=== PATIENT | male | born 2000 | race Caucasian/White ===

== ENCOUNTER 2020-02-18 16:47 | Emergency (ER) | payer OTHER ==
[~2020-02-18] VITALS: Ht 180.3 cm; Wt 61.2 kg
[2020-02-18 16:49] VITALS: BP 124/66
[2020-02-18] MEDS ORDERED: BACTRIM DS TAB1 EACH PO (17:52)
== END 2020-02-18 17:43 | disposition home or self-care (01) ==
LOC: ER 16:47
DX: S50.861A Insect bite (nonvenomous) of right forearm, initial encounter (principal); W57.XXXA Bitten or stung by nonvenomous insect and other nonvenomous arthropods, initial encounter; Y93.89 Activity, other specified; Y92.89 Other specified places as the place of occurrence of the external cause; Y99.8 Other external cause status

== ENCOUNTER 2020-03-22 14:24 | Emergency (ER) | payer OTHER ==
[~2020-03-22] VITALS: Ht 182.9 cm; Wt 67.3 kg
[~2020-03-22 14:24] MED LIST: BACTRIM DS TAB1 EACH PO
[2020-03-22 14:31] VITALS: BP 106/66
[2020-03-22] MEDS ORDERED: BACTRIM DS TAB1 EACH PO (14:43)
== END 2020-03-22 17:02 | disposition home or self-care (01) ==
LOC: ER 14:24
DX: S40.862A Insect bite (nonvenomous) of left upper arm, initial encounter (principal); L02.412 Cutaneous abscess of left axilla; Z79.2 Long term (current) use of antibiotics; W57.XXXA Bitten or stung by nonvenomous insect and other nonvenomous arthropods, initial encounter; Y93.89 Activity, other specified; Y92.89 Other specified places as the place of occurrence of the external cause; Y99.8 Other external cause status

== ENCOUNTER 2020-05-29 12:10 | Emergency (ER) | payer OTHER ==
[~2020-05-29] VITALS: Ht 182.9 cm; Wt 74.8 kg
[2020-05-29 12:17] VITALS: BP 133/79
[2020-05-29] MEDS ORDERED: MEDROLDOSEPACK PO (12:40)
== END 2020-05-29 12:44 | disposition home or self-care (01) ==
LOC: ER 12:10
DX: L25.9 Unspecified contact dermatitis, unspecified cause (principal)

== ENCOUNTER 2020-08-03 17:37 | Emergency (ER) | payer OTHER ==
[~2020-08-03] VITALS: Ht 185.4 cm; Wt 68.0 kg
[~2020-08-03 17:37] MED LIST changes: +MEDROLDOSEPACK PO
[2020-08-03 19:17] VITALS: BP 125/87
--- NOTE | 2020-08-04 08:00 | EKG ---
[facility] [place] [address] ELECTROCARDIOGRAM REPORT Name: SHAHIDA HAWKINS Room #: DEP [facility]#: [id number] Admission: 08/03/20 Attend Phys: Discharge: 08/03/20 Date of : 89 Report #: [id number] THIS REPORT FOR: cc: JARRED - Charlene family physician/PCP JARRED - Charlene family physician/PCP Poncho Feldman MD [facility] ~ THIS REPORT FOR: //name// [facility] ED Test Date: 2020-08-03 Test Time: 17:51:53 Pat Name: SHAHIDA HAWKINS Department: Room: Gender: Logistics/Shipper: : 2000 Requested By: Axel Lemon Order Number: [id number] MD: Poncho Feldman Measurements Intervals Lindsay Rate: 74 P: 64 MO: 159 QRS: -1 QRSD: 83 T: 36 QT: 367 QTc: 408 Interpretive Statements Sinus rhythm Probable left atrial enlargement RSR' in V1 or V2, right VCD or RVH No previous ECG available for comparison Electronically Signed On 08-04-2020 8:00:39 CDT by Poncho Feldman [email or web address] <ELECTRONICALLY SIGNED> By: Poncho Feldman MD, FACC 08/04/20 0800 50 50 Poncho Feldman MD, [facility] /EPI
== END 2020-08-03 19:18 | disposition home or self-care (01) ==
LOC: ER 17:37
DX: M75.52 Bursitis of left shoulder (principal)

== ENCOUNTER 2020-08-18 09:07 | Emergency (ER) | payer OTHER ==
[~2020-08-18] VITALS: Ht 177.8 cm; Wt 74.8 kg
[2020-08-18] MEDS ORDERED: IBUPROFEN 600600 M1 PO (11:32)
[2020-08-18] MEDS ORDERED: SENNA-DOCUSATE1 EAC1 PO (11:32)
[2020-08-18] MEDS ORDERED: FLEXERIL PO (11:32)
[2020-08-18] MEDS ORDERED: NORCO 5-325 TA1 EAC2 PO (11:32)
[2020-08-18 11:50] VITALS: BP 108/69
== END 2020-08-18 12:04 | disposition home or self-care (01) ==
LOC: ER 09:07
DX: M25.512 Pain in left shoulder (principal); M25.552 Pain in left hip; M79.652 Pain in left thigh; F17.210 Nicotine dependence, cigarettes, uncomplicated; Z90.89 Acquired absence of other organs; V89.2XXA Person injured in unspecified motor-vehicle accident, traffic, initial encounter; Y93.89 Activity, other specified; Y92.488 Other paved roadways as the place of occurrence of the external cause; Y99.8 Other external cause status

== ENCOUNTER 2020-10-19 12:04 | Emergency (ER) | payer OTHER ==
[~2020-10-19] VITALS: Ht 182.9 cm; Wt 74.8 kg
[~2020-10-19 12:04] MED LIST changes: +FLEXERIL PO; +IBUPROFEN 600600 M1 PO; +NORCO 5-325 TA1 EAC2 PO; +SENNA-DOCUSATE1 EAC1 PO
[2020-10-19 14:16] VITALS: BP 136/80
[2020-10-19] MEDS ORDERED: IBUPROFEN 800800 M1 PO (14:18)
== END 2020-10-19 14:18 | disposition home or self-care (01) ==
LOC: ER 12:04
DX: S63.92XA Sprain of unspecified part of left wrist and hand, initial encounter (principal); F17.210 Nicotine dependence, cigarettes, uncomplicated; Z23 Encounter for immunization; Z90.89 Acquired absence of other organs; Z79.899 Other long term (current) drug therapy; X50.1XXA Overexertion from prolonged static or awkward postures, initial encounter; Y93.89 Activity, other specified; Y92.89 Other specified places as the place of occurrence of the external cause; Y99.8 Other external cause status

== ENCOUNTER 2021-02-01 11:18 | Emergency (ER) | payer OTHER ==
[~2021-02-01] VITALS: Ht 182.9 cm; Wt 74.8 kg
[~2021-02-01 11:18] MED LIST changes: +IBUPROFEN 800800 M1 PO
[2021-02-01 11:29] VITALS: BP 104/60
[2021-02-01] MEDS ORDERED: IBUPROFEN 800800 M1 PO (12:01)
== END 2021-02-01 12:10 | disposition home or self-care (01) ==
LOC: ER 11:18
DX: S63.696A Other sprain of right little finger, initial encounter (principal); F17.210 Nicotine dependence, cigarettes, uncomplicated; X50.1XXA Overexertion from prolonged static or awkward postures, initial encounter; Y93.89 Activity, other specified; Y92.89 Other specified places as the place of occurrence of the external cause; Y99.9 Unspecified external cause status

== ENCOUNTER 2021-04-15 15:09 | Emergency (ER) | payer OTHER ==
[~2021-04-15] VITALS: Ht 180.3 cm; Wt 81.7 kg
[2021-04-15] MEDS ORDERED: HYDROCORTISONE30 G4 TOP (16:53)
[2021-04-15] MEDS ORDERED: PREDNISONE 20 M20 MG PO (16:53)
[2021-04-15] MEDS ORDERED: HYDRALAZINE 2525 MG PO (16:53)
[2021-04-15 17:28] VITALS: BP 115/65
== END 2021-04-15 17:27 | disposition home or self-care (01) ==
LOC: ER 15:09
DX: L23.7 Allergic contact dermatitis due to plants, except food (principal); F17.210 Nicotine dependence, cigarettes, uncomplicated; Z90.89 Acquired absence of other organs; Z79.899 Other long term (current) drug therapy

== ENCOUNTER 2021-04-28 12:39 | Emergency (ER) | payer OTHER ==
[~2021-04-28] VITALS: Ht 182.9 cm; Wt 83.9 kg
[~2021-04-28 12:39] MED LIST changes: +HYDRALAZINE 2525 MG PO; +HYDROCORTISONE30 G4 TOP; +PREDNISONE 20 M20 MG PO
[2021-04-28] MEDS ORDERED: BACTRIM DS TAB1 EACH PO (14:32)
[2021-04-28 14:36] VITALS: BP 138/81
== END 2021-04-28 14:46 | disposition home or self-care (01) ==
LOC: ER 12:39
DX: S51.831A Puncture wound without foreign body of right forearm, initial encounter (principal); L03.113 Cellulitis of right upper limb; R42 Dizziness and giddiness; F17.210 Nicotine dependence, cigarettes, uncomplicated; W59.11XA Bitten by nonvenomous snake, initial encounter; Y92.89 Other specified places as the place of occurrence of the external cause; Y93.89 Activity, other specified; Y99.0 Civilian activity done for income or pay

== ENCOUNTER 2021-05-05 06:41 | Emergency (ER) | payer OTHER ==
[~2021-05-05] VITALS: Ht 180.3 cm; Wt 83.9 kg
[2021-05-05 06:54] VITALS: BP 117/74
[2021-05-05] MEDS ORDERED: NOHOMEMEDICATIONS (06:58)
== END 2021-05-05 08:20 | disposition home or self-care (01) ==
LOC: ER 06:41
DX: S99.921A Unspecified injury of right foot, initial encounter (principal); F17.210 Nicotine dependence, cigarettes, uncomplicated; Z90.89 Acquired absence of other organs; W22.09XA Striking against other stationary object, initial encounter; Y93.89 Activity, other specified; Y92.89 Other specified places as the place of occurrence of the external cause; Y99.8 Other external cause status